=== PATIENT | male | born 1995 | race Caucasian/White ===

== ENCOUNTER → 2017-06-17 | Day surgery (SDC) | payer OTHER ==
[~2017-06-17] VITALS: Ht 175.3 cm; Wt 79.4 kg
--- NOTE | 2017-06-17 14:44 | Operative Report ---
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 A right-sided repair was planned but while away at school there became a question of left- sided symptoms having developed. Reviewing his MRI which is negative on the left side and with a completely negative left-sided exam I discussed with Maximilian and his mom that we should focus our repair only on the right side at this point and that his right abductor may require subsequent treatment. A robotic right- sided repair is therefore planned. Operative/Procedure Note Note: The patient's taken to the operating room placed on the operating table in a supine position. His right groin had been marked in the preop only area. Following an awake timeout he underwent uneventful induction of general endotracheal anesthesia had his arms tucked by his side, had a tap block with ultrasound guidance by anesthesia and then had the lower abdomen and groin prepped widely with DuraPrep and draped usual sterile fashion including Ioban. He had been shaved in the preop holding area. Venodyne boots were in place and pumping and he received clindamycin IV prior to skin incision as he had a penicillin allergy. Local anesthetic was now treated in the supraumbilical area where a curvilinear incision was made and carried down to the fascia. Fascia was opened vertically for short distance to expose the preperitoneal fat which was elevated and incised carefully along with the peritoneum to gain entry safely into the peritoneal cavity. Finger sweep revealed no adhesions and a 12 mm aerocele port was placed in a Rosado fashion. Pneumoperitoneum was achieved and a 8 mm da Gideon 30 scope was inserted. The patient was placed in 10 Trendelenburg and we surveyed the inguinal floor which appeared normal. Now to 8 mm working ports were placed laterally slightly higher on the right than on the left or lateral to the epigastric vessels under direct vision and after infiltrating local anesthetic. The XI [employer] Gideon robot was then docked and targeted for the right groin. A monopolar hemalatha was placed in the right hand # 4In the left hand and fenestrated bipolar #2 port. The peritoneal flap 4 cm above the internal ring was normal but could be seen as a slight dimple. Given the patient's thin body habitus and low body fat one was able to appreciate his cord and medial deviation of the vas through the peritoneum. Flap was carried over medially carefully leaving the epigastric vessels uninjured to the anterior abdominal wall and then crossing the medial umbilical ligament over to the midline. Then dissected down to the pubic symphysis and then worked laterally along the ramus. Here is where the injury in the direct space came into view where there was a very thinned out appearance to the posterior fascia and the concavity and laxity to the space. It was no discrete direct hernia. Now working high and lateral I created a pocket in the lateral space and then worked back across the cord rolling the peritoneum off with care taken not to injure the cord. This dissection went back to where the vas deviated medially. I cleared off the only attachments in the gutter between direct and indirect spaces being careful not to injure the underlying iliac vein. Our 3-D Max medium right mesh was selected and placed into the space and overlap the symphysis nicely as I had cleared off just to to the left side given the findings of edema at the symphysis and wanting a good overlap there. Laterally, the tail of the mesh sat nicely in the pocket while the inferior edge set just above or I dissected the peritoneum off. 2-0 Tycron sutures were placed into the fascia of the rectus the midpoint of the mesh superiorly and the second suture just anteriorand superior to the symphysis into some fascia there. The peritoneal flap was now closed with a running 20V LOC absorbable suture with excellent coverage. the robot was undocked and the ports removed under direct vision. I closed the fascia at the umbilicus with 2 [id number] sutures of 0 Maxon then used 3-0 Vicryl on the subcutaneous tissue followed by 4-0 Monocryl running subcutaneous tic or skin closure throughout. Strips, 2 x 2's and OpSite were placed. The patient tolerated the procedure well was taken to the recovery room extubated in stable condition with all sponge needle and she recounts confirms correct 2 completion of the case. There was no appreciable subcutaneous emphysema and a mild pneumo scrotum was decompressed with some manual pressure. Findings: Thinned posterior wall with concavity and laxity at the direct space consistent with his right sports hernia. No evidence of indirect hernia or lipoma Discharge Disposition: PACU
== END ==
LOC: STS 01:03
DX: K40.90 Unilateral inguinal hernia, without obstruction or gangrene, not specified as recurrent (principal); S39.81XA Other specified injuries of abdomen, initial encounter; Y93.65 Activity, lacrosse and field hockey
CPT/HCPCS: 49650; 64488; S2900; C1781; C9290; C9399; J0131; J0690; J1885; J2250; J3490